=== PATIENT | female | born 1995 | race Caucasian/White ===

== ENCOUNTER 2018-11-19 20:53 | Emergency (ER) | payer SELFPAY ==
--- NOTE | 2018-11-19 23:53 | ER Document Report ---
ED Animal Bite - General Chief Complaint: Dog Bite Stated Complaint: DOG BITE Time Seen by Provider: 11/19/18 23:30 Notes: 23-year-old female presents to the emergency department after getting bit by a pit bull about 8 PM her right arm. Patient says she does not know the dog's roving hauler but a person in the exam room states that he did not feel that "the dog was rabid and someone probably owned it ". She said she does not know how long the dog latched on but the individual in the room said he said it was very brief and he immediately pulled the dog off of her. She complains of right arm pain and numbness along the lateral antebrachial continuous nerve distribution. She is also complaining of a laceration on the dorsal side of her right forearm. She states it is been oozing blood and it is currently covered with 4 x 4 gauze. She states that area feels like "when your arm falls asleep ". Last tetanus 1 month ago. Has no other complaints. Past Medical History - Social History Smoking Status: Unknown if Ever Smoked Family History: None Review of Systems - Review of Systems Musculoskeletal: See HPI Skin: See HPI Physical Exam - Vital signs Vitals: Temp Pulse Resp BP Pulse Ox 98.6 F 99 16 122/85 99 11/19/18 21:09 11/19/18 21:09 11/19/18 21:09 11/19/18 21:09 11/19/18 21:09 - General General appearance: Appears well, Alert - Respiratory Respiratory status: No respiratory distress - Skin Skin Temperature: Warm Skin Moisture: Dry Skin Color: [place] Location of irregularity: Extremities - Laceration on dorsal aspect of right forearm. Approximately 2 cm long and 0.5 cm wide. Able to approximate the wound. There is some subcutaneous fat exposed. Wound is oozing minimal blood. Course - Re-evaluation Re-evalutation: 11/19/18 23:53 23-year-old female who was bit by a pit bull. She does not know whose dog it was. Per the patient's friend in the room he immediately pulled the dog off of her and it was just a quick snap. Test tetanus 1 month ago. There is a laceration on the dorsal aspect of her right forearm approximately 2 cm long by 0.5 cm open. Able to approximate the wound. I will place a stay suture to loosely approximate the wound and help with hemorrhage control. 11/20/18 00:[address] Cline. He recommend that it is okay to place a stay suture in place. There is a second bite roe that is open that I will place a very loose suture over for hemorrhage control. 11/20/18 00:57 11/20/18 00:58 - Vital Signs Vital signs: Temp Pulse Resp BP Pulse Ox 98.6 F 99 16 122/85 99 11/19/18 21:09 11/19/18 21:09 11/19/18 21:09 11/19/18 21:09 11/19/18 21:09 Procedures - Laceration/Wound Repair Right Mid- Arm Wound length (cm): 3 Wound's Depth, Shape: Superficial, Irregular Laceration pre-procedure: Sterile PPE donned Anesthetic type: 1% Lidocaine w/epi Volume Anesthetic (mLs): 2 Wound explored: Clean Wound Debrided: Minimal Wound Repaired With: Sutures Suture Size/Type: 4:0, Ethilon Layer Closure?: No Discharge - Discharge Clinical Impression: Dog bite of arm Qualifiers: Encounter type: initial encounter Laterality: left Qualified Code(s): S41.152A - Open bite of left upper arm, initial encounter; W54.0XXA - Bitten by dog, init ial encounter Condition: Good Disposition: HOME, SELF-CARE Instructions: Animal Bites ([facility]) Additional Instructions: You are seen in the emergency department this evening for dog bite. These are considered very dirty wounds and they have a high rate of infection. The only reason I placed sutures in was to better approximate the wound for bleeding control. You need to pay for close attention for any signs of infection. This can include warmth and redness at the site red streaks running up your arm towards her shoulder new swelling, or fevers. You have been prescribed a antibiotic called Augmentin that you need to take 2 times a day for 3 days. There is a chance that he could get some diarrhea or GI upset with it. The sutures need to be removed in about 7 days. Please return to the hospital or to your primary care doctor to have them removed so that a wound check and also be completed to ensure that there is no infection.
[2018-11-19] MEDS ORDERED: LIDOCAINE 1%/EPINEPHRINE INJ 20 ML VIAL INJ ONE (23:59)
[2018-11-20 01:34] VITALS: BP 120/74
== END 2018-11-20 01:32 | disposition home or self-care (01) ==
LOC: EDBD 20:53 → ER 20:53
DX: S41.152A Open bite of left upper arm, initial encounter (principal); S51.851A Open bite of right forearm, initial encounter; W54.0XXA Bitten by dog, initial encounter; R20.0 Anesthesia of skin
CPT/HCPCS: 99283; 12002; J3490

== ENCOUNTER 2018-12-20 13:06 | Emergency (ER) | payer SELFPAY ==
--- NOTE | 2018-12-20 13:42 | ER Document Report ---
HPI - HPI Patient complains to provider of: Shingles to the face Time Seen by Provider: 12/20/18 13:35 Onset: Yesterday Onset/Duration: Gradual Pain Level: 3 Context: Patient states that she has gotten a case of shingles to the left side of her face almost every year since the age of 10. Patient does not wear any contact lenses but does wear glasses. Patient did not bring her glasses with her today. Patient states normally her zoster lesions are just to the left cheek area but whenever she noticed lesions to her left upper eyelid area this made her concerned. Patient denies any change in vision, eye redness or eye discomfort. Exacerbated by: Denies Relieved by: Denies Similar symptoms previously: Yes Recently seen / treated by doctor: No - ROS ROS below otherwise negative: Yes Systems Reviewed and Negative: Yes All other systems reviewed and negative - CONSTITUTIONAL Constitutional: DENIES: Fever - EENT EENT: DENIES: Eye problems - NEURO Neurology: DENIES: Headache, Weakness - REPRODUCTIVE Reproductive: DENIES: : - DERM Skin Problems: Rash Past Medical History - General Information source: Patient - Social History Smoking Status: Never Smoker Frequency of alcohol use: None Drug Abuse: None Occupation: Retail Lives with: Spouse/Significant other Family History: None - Medical History Medical History: Negative Renal/ Medical History: Denies: Hx Peritoneal Dialysis Surgical Hx: Negative Vertical Provider Document - CONSTITUTIONAL Agree With Documented VS: Yes Exam Limitations: No Limitations General Appearance: WD/WN, No Apparent Distress - INFECTION CONTROL TRAVEL OUTSIDE OF THE [place] IN LAST 30 DAYS: No - HEENT HEENT: Atraumatic, Normocephalic Notes: Few scattered papular lesions to inner canthus of left upper eyelid, sclera clear to left eye. No corneal abrasion, ulcer, foreign body or dendrite. - NECK Neck: Normal Inspection, Supple. negative: Lymphadenopathy-Right - RESPIRATORY Respiratory: Breath Sounds Normal, No Respiratory Distress - CARDIOVASCULAR Cardiovascular: Regular Rate, Regular Rhythm - BACK Back: Normal Inspection - MUSCULOSKELETAL/EXTREMETIES Musculoskeletal/Extremeties: CARYL HU - NEURO Level of Consciousness: Awake, Alert, Appropriate - DERM Integumentary: Warm, Dry, Rash - Few scattered papular lesions to the left upper inner canthus of eyelid. Patient with 2 additional erythematous papular lesions to left upper cheek Course - Re-evaluation Re-evalutation: 12/20/18 13:41 Patient states she has a long history of shingles to the left side of her face. Patient states that she has not ever had lesions to the eyelid and she wanted to come in as soon as she noticed them because she has had a family member who had shingles in her eye previously. 12/20/18 14:01 No evidence of herpes ophthalmicus. Patient encouraged to follow-up with ophthalmology tomorrow for repeat examination. Patient advised to return immediately for any worsening of symptoms, eye irritation, change in vision, or any concerning symptoms. - Vital Signs Vital signs: Temp Pulse Resp BP Pulse Ox 98.4 F 94 16 105/75 99 12/20/18 13:28 12/20/18 13:28 12/20/18 13:28 12/20/18 13:28 12/20/18 13:28 Discharge - Discharge Clinical Impression: Shingles Qualifiers: Herpes zoster complications: without complications Qualified Code(s): B02.9 - Zoster without complications Condition: Stable Disposition: HOME, SELF-CARE Instructions: Shingles ([facility]) Additional Instructions: Return immediately for any new or worsening symptoms Followup with your primary care provider, call tomorrow to make a followup appointment Follow up with ophthalmology tomorrow for repeat examination Prescriptions: Valacyclovir HCl [Valacyclovir] 1,000 mg PO TID #21 tablet Forms: Return to Work Referrals: [facility] [Provider Group] - Follow up tomorrow
[2018-12-20] MEDS ORDERED: VALACYCLOVIR HCL 500 MG TABLET PO ONE (14:00)
[2018-12-20 14:50] VITALS: BP 112/72
== END 2018-12-20 14:17 | disposition home or self-care (01) ==
LOC: ER 13:06
DX: B02.9 Zoster without complications (principal)
CPT/HCPCS: 99283

== ENCOUNTER 2019-01-05 09:20 | Emergency (ER) | payer SELFPAY ==
[2019-01-05 09:40] VITALS: BP 111/80
--- NOTE | 2019-01-05 10:09 | ER Document Report ---
ED Eye Complaint - General Chief Complaint: Eye Problem Stated Complaint: LEFT EYE ITCHING Time Seen by Provider: 01/05/19 09:51 Primary Care Provider: ELIZABETH MURILLO DO [ACTIVE STAFF] - 01/05/19 10:12 am Mode of Arrival: Ambulatory Information source: Patient Notes: 23-year-old female presented to ED for complaint of continued pain and itching to the left upper eyelid. She states she was diagnosed with shingles 2 weeks ago and took all of her medication and the rash and itching and pain and swelling her back worse than before. She stated she completed her antivirals and needs to be seen again. She states she did not follow-up with the solo musician as she was instructed. TRAVEL OUTSIDE OF THE [place] IN LAST 30 DAYS: No - HPI Eye location: Left Injury: No Quality of pain: Pressure, Sharp, Throbbing Severity: Moderate Pain Level: 2 Safety glasses worn: No Contact lenses worn: No Associated symptoms: Burning, Itching, Eyelid swelling - Related Data Allergies/Adverse Reactions: No Known Allergies Allergy (Verified 01/05/19 09:23) Past Medical History - General Information source: Patient - Social History Smoking Status: Never Smoker Chew tobacco use (# tins/day): No Frequency of alcohol use: None Drug Abuse: None Occupation: retail Lives with: Spouse/Significant other Family History: None Patient has suicidal ideation: No Patient has homicidal ideation: No - Past Medical History Cardiac Medical History: Reports: None Pulmonary Medical History: Reports: None EENT Medical History: Reports: None Neurological Medical History: Reports: None Endocrine Medical History: Reports: None Renal/ Medical History: Reports: None Malignancy Medical History: Reports: None GI Medical History: Reports: None Musculoskeletal Medical History: Reports None Skin Medical History: Reports None Psychiatric Medical History: Reports: None Traumatic Medical History: Reports: None Infectious Medical History: Reports: None Surgical Hx: Negative Past Surgical History: Reports: None - Immunizations Immunizations up to date: Yes Review of Systems - Review of Systems Constitutional: No symptoms reported EENT: Eye pain. denies: Eye discharge, Blurred vision, Tearing, Double vision Cardiovascular: No symptoms reported Respiratory: No symptoms reported Gastrointestinal: No symptoms reported Genitourinary: No symptoms reported Female Genitourinary: No symptoms reported Musculoskeletal: No symptoms reported Skin: Rash - swelling to left eyelid Hematologic/Lymphatic: No symptoms reported Neurological/Psychological: No symptoms reported -: Yes All other systems reviewed and negative Physical Exam - Vital signs Vitals: Temp Pulse Resp BP Pulse Ox 99.2 F 88 16 111/80 100 01/05/19 09:39 01/05/19 09:39 01/05/19 09:39 01/05/19 09:39 01/05/19 09:39 Interpretation: Normal - General General appearance: Appears well, Alert - HEENT Head: Normocephalic, Atraumatic Eyes: Normal Pupils: PERRL - Respiratory Respiratory status: No respiratory distress Chest status: Nontender Breath sounds: Normal Chest palpation: Normal - Cardiovascular Rhythm: Regular Heart sounds: Normal auscultation Murmur: No - Abdominal Inspection: Normal Distension: No distension Bowel sounds: Normal Tenderness: Nontender Organomegaly: No organomegaly - Back Back: Normal, Nontender - Extremities General upper extremity: Normal inspection, Nontender, Normal color, Normal ROM, Normal temperature General lower extremity: Normal inspection, Nontender, Normal color, Normal ROM, Normal temperature, Normal weight bearing. No: Moriah's sign - Neurological Neuro grossly intact: Yes Cognition: Normal Orientation: AAOx4 [place] Coma Scale Eye Opening: Spontaneous [place] Coma Scale Verbal: Oriented [place] Coma Scale Motor: Obeys Commands [place] Coma Scale Total: 15 Speech: Normal Motor strength normal: LUE, RUE, LLE, RLE Sensory: Normal - Psychological Associated symptoms: Normal affect, Normal mood - Skin Skin Temperature: Warm Skin Moisture: Dry Skin Color: Normal Course - Vital Signs Vital signs: Temp Pulse Resp BP Pulse Ox 99.2 F 88 16 111/80 100 01/05/19 09:39 01/05/19 09:39 01/05/19 09:39 01/05/19 09:39 01/05/19 09:39 Discharge - Discharge Clinical Impression: Swelling of left upper eyelid, History of shingles Condition: Stable Disposition: HOME, SELF-CARE Additional Instructions: Were seen today for swelling redness and pain to your left eyelid. Have a history of shingles in the eyelid and you were treated with Valtrex. I have called the eye doctor now and they stated you were to come right over to the office now. FOLLOW-UP CARE: If you have been referred to a physician for follow-up care, call the physicians office for an appointment as you were instructed or within the next two days. If you experience worsening or a significant change in your symptoms, notify the physician immediately or return to the Emergency Department at any time for re-evaluation. Forms: Return to Work Referrals: ELIZABETH MURILLO DO [ACTIVE STAFF] - 01/05/19 10:12 am
== END 2019-01-05 10:17 | disposition home or self-care (01) ==
LOC: ER 09:20
DX: R22.0 Localized swelling, mass and lump, head (principal); L29.9 Pruritus, unspecified; R20.8 Other disturbances of skin sensation; H57.10 Ocular pain, unspecified eye; Z86.19 Personal history of other infectious and parasitic diseases
CPT/HCPCS: 99283